=== PATIENT | female | born 1955 | race Caucasian/White ===

== ENCOUNTER → 2016-09-22 | Outpatient (CLI) | payer OTHER ==
--- NOTE | 2016-09-26 11:09 | RESP ---
DATE OF SERVICE: 09/22/2016 PFT NOTE ATTENDING PHYSICIAN: Dr. Cummins. The patient's FVC was 2.39, which is 70% predicted, FEV1 1.43, which is 54% predicted, the FEV1/FVC ratio was 59. The patient had excellent response to bronchodilators with 17% improvement in FVC and 18% improvement in FEV1. Lung volume showed a total lung capacity of 145% predicted, residual volume was 266% predicted, diffusion capacity 74% predicted. IMPRESSION: 1. Moderate obstructive airway disease. 2. Excellent response to bronchodilators suggesting a component of reactive airway disease. 3. Lung volumes consistent with air trapping and hyperinflation. 4. Mildly reduced diffusion capacity. JOI RINCON MD DR: YADIEL/janene JOB#: [id number] / [id number] HARRISON Garcia MD
== END | disposition home or self-care (01) ==
LOC: PF 14:31
PROVIDERS: ATTEND Internal Medicine Cardiovascular Disease
DX: R06.00 Dyspnea, unspecified (principal)
CPT/HCPCS: 94060; 94729